=== PATIENT | male | born 1935 | race Caucasian/White ===

== ENCOUNTER 2017-04-12 06:35 | Inpatient (IN) ==
[2017-04-07 12:33] LABS: Basophils % 0.6 % (0.0-0.8); Eosinophils # 0.2 10*3/uL (0.0-0.87); Eosinophils % 2.6 % (0.00-10.9); Hematocrit 44.5 VOL% (42.0-52.0); Hemoglobin 14.2 GM/DL (14.0-18.0); Immature Granulocytes % 0.3 %; Immature Granulocytes Absolute 0.02 #; Lymphocytes # 2.2 10*3/uL (1.4-4.0); Lymphocytes % 30.8 % (21.2-54.2); Mean Corpuscular HGB Conc 31.9 GM/DL (32-36); Mean Corpuscular Hemoglobin 31 PG (27-34); Monocytes # 0.4 10*3/uL (0.11-0.8); Monocytes % 6.3 % (1.7-12.7); Neutrophils # 4.1 10*3/uL (1.4-7.4); Neutrophils % 59.4 % (38.7-73.9); Platelet Count 125 T/CUMM (130-400); Red Blood Count 4.54 MC/CUMM (3.8-5.5); Red Cell Distribution Width 13.3 % (9.3-17.3)
[2017-04-07 12:57] LABS: Albumin 3.9 G/DL (3.4-5.0); Bilirubin,Total 0.5 MG/DL (0.2-1.0); Calcium 8.9 MG/DL (8.5-10.1); Osmolality,Calculated 284.1 MOS/KG (273-304); Potassium 4.4 MMOL/L (3.5-5.1); Total Protein 6.6 G/DL (6.4-8.3)
[~2017-04-12 06:35] MED LIST: ceFAZolin 1,000 MG in SYRINGE 1 EACH IV ONE
[2017-04-12] MEDS ORDERED: VANCOMYCIN 500 MG VIAL ONE (07:18)
[2017-04-12] MEDS ORDERED: HEPARIN 5,000 UNIT/1 ML VIAL ONE (07:18)
[2017-04-12] MEDS ORDERED: ceFAZolin 1,000 MG VIAL ONE (07:29)
[2017-04-12] MEDS: LACTATED RINGERS 1,000 ML IV SCH ×3 (07:35→17:30)
[2017-04-12] MEDS ORDERED: HEPARIN/NACL 0.9% 2 UNITS/ML 500 ML IV ONE (08:10)
[2017-04-12] MEDS ORDERED: NITROGLYCERIN DRIP 50 MG/250 ML BOTTLE IV ONE (08:11)
[2017-04-12] MEDS ORDERED: FAMOTIDINE 20 MG/2 ML VIAL IV ONE ×2 (08:28→08:45)
[2017-04-12] MEDS ORDERED: HEPARIN 10,000 UNIT/10 ML VIAL ONE (08:43)
[2017-04-12] MEDS ORDERED: ETOMIDATE 20 MG/10 ML VIAL IV ONE (09:00)
[2017-04-12] MEDS ORDERED: DEXTROSE 50% 25 GM/50 ML VIAL IV PRN (10:21)
[2017-04-12] MEDS ORDERED: PROMETHAZINE 25 MG/1 ML VIAL IM PRN (10:21)
[2017-04-12] MEDS ORDERED: ONDANSETRON 4 MG/2 ML VIAL IV PRN (10:21)
[2017-04-12] MEDS ORDERED: oxyCODONE/ACETAMINOPHEN 5-325 MG TABLET PO PRN (10:21)
[2017-04-12] MEDS ORDERED: GLUCAGON 1 MG VIAL IM PRN (10:21)
[2017-04-12] MEDS ORDERED: NALOXONE 0.4 MG/ML VIAL IV PRN (10:21)
[2017-04-12] MEDS ORDERED: HYDROmorphone 2 MG/1 ML VIAL ONE (11:44)
[2017-04-12] MEDS: HYDROmorphone 2 MG/1 ML VIAL IV PRN ×3 (11:44→23:50)
[2017-04-12] MEDS ORDERED: HYDROmorphone 2 MG/1 ML VIAL IV PRN (12:18)
[2017-04-12] MEDS ORDERED: fentaNYL 100 MCG/2 ML VIAL ONE (12:51)
[2017-04-12] MEDS ORDERED: ONDANSETRON 4 MG/2 ML VIAL ONE (12:51)
[2017-04-12] MEDS ORDERED: MIDAZOLAM 2 MG/2 ML VIAL ONE (12:51)
[2017-04-12] MEDS ORDERED: GLYCOPYRROLATE 0.4 MG/2 ML VIAL ONE (12:51)
[2017-04-12] MEDS ORDERED: ROCURONIUM 100 MG/10 ML VIAL IV ONE (12:52)
[2017-04-12] MEDS ORDERED: PROTAMINE SULFATE 50 MG/5 ML VIAL IV ONE (12:52)
[2017-04-12] MEDS ORDERED: NEOSTIGMINE 10 MG/10 ML VIAL ONE (12:52)
[2017-04-12] MEDS: PHENYLEPHRINE DRIP 40 MG/250 ML PREMIX IV SCH (14:00)
[2017-04-12] MEDS: INSULIN REGULAR 100 UNIT/ML SUBCUT SCH ×3 (14:28→21:38)
[2017-04-12] MEDS: NITROPRUSSIDE 100 MG in DEXTROSE 5% 250 ML IV SCH (14:28)
[2017-04-12] MEDS ORDERED: Gluc Su/Chondro Su A/Vit C/Mn [Glucosamine Chondroitin Tab] 1 EA PO SCH (21:00)
[2017-04-12] MEDS: METOPROLOL TARTRATE 25 MG TABLET PO SCH (21:38)
[2017-04-12] MEDS: oxyCODONE/ACETAMINOPHEN 5-325 MG TABLET PO PRN (21:40)
[2017-04-13] MEDS: HYDROmorphone 2 MG/1 ML VIAL IV PRN ×4 (02:20→23:28)
[2017-04-13] MEDS: LACTATED RINGERS 1,000 ML IV SCH ×3 (03:40→22:18)
[2017-04-13 05:54] LABS: Risk Ratio 2.69; VLDL CHOLESTEROL 12.2 MG/DL
[2017-04-13] MEDS: INSULIN REGULAR 100 UNIT/ML SUBCUT SCH ×4 (08:25→21:12)
[2017-04-13] MEDS ORDERED: [UNRECOGNIZED DRUG - OTHER] PO SCH (09:00)
[2017-04-13] MEDS ORDERED: PRENATAL VITS PO SCH (09:00)
[2017-04-13] MEDS ORDERED: IRON FUM PO SCH (09:00)
[2017-04-13] MEDS ORDERED: ASPIRIN CHEW 81 MG TABLET PO SCH (09:00)
[2017-04-13] MEDS: LOVASTATIN 20 MG TABLET PO SCH (09:43)
[2017-04-13] MEDS: DILTIAZEM CD 120 MG CAPSULE PO SCH (09:44)
[2017-04-13] MEDS: DOCUSATE SODIUM 100 MG CAPSULE PO SCH (09:44)
[2017-04-13] MEDS: FAMOTIDINE 20 MG TABLET PO SCH (09:45)
[2017-04-13] MEDS: FUROSEMIDE 40 MG TABLET PO SCH (09:45)
[2017-04-13] MEDS: ASPIRIN EC 81 MG TABLET PO SCH (09:45)
[2017-04-13] MEDS: MAGNESIUM OXIDE 400 MG TABLET PO SCH (09:45)
[2017-04-13] MEDS: acetaZOLAMIDE 250 MG TABLET PO SCH (09:45)
[2017-04-13] MEDS: CLOPIDOGREL 75 MG TABLET PO SCH (09:45)
[2017-04-13] MEDS: METOPROLOL TARTRATE 25 MG TABLET PO SCH ×2 (09:46→20:49)
[2017-04-13] MEDS: POTASSIUM CHLORIDE 20 MEQ TABLET PO SCH (09:57)
[2017-04-13] MEDS: CHOLECALCIFEROL 1,000 UNIT TABLET PO SCH (09:57)
[2017-04-13] MEDS: oxyCODONE/ACETAMINOPHEN 5-325 MG TABLET PO PRN (13:17)
[2017-04-13] MEDS: PHENYLEPHRINE DRIP 40 MG/250 ML PREMIX IV SCH (22:18)
[2017-04-13] MEDS: NITROPRUSSIDE 100 MG in DEXTROSE 5% 250 ML IV SCH (22:18)
[2017-04-14] MEDS: INSULIN REGULAR 100 UNIT/ML SUBCUT SCH ×4 (07:30→21:58)
[2017-04-14] MEDS: DILTIAZEM CD 120 MG CAPSULE PO SCH (10:02)
[2017-04-14] MEDS: POTASSIUM CHLORIDE 20 MEQ TABLET PO SCH (10:03)
[2017-04-14] MEDS: CLOPIDOGREL 75 MG TABLET PO SCH (10:04)
[2017-04-14] MEDS: FAMOTIDINE 20 MG TABLET PO SCH (10:04)
[2017-04-14] MEDS: METOPROLOL TARTRATE 25 MG TABLET PO SCH ×2 (10:04→22:18)
[2017-04-14] MEDS: MAGNESIUM OXIDE 400 MG TABLET PO SCH (10:04)
[2017-04-14] MEDS: DOCUSATE SODIUM 100 MG CAPSULE PO SCH (10:04)
[2017-04-14] MEDS: LOVASTATIN 20 MG TABLET PO SCH (10:05)
[2017-04-14] MEDS: ASPIRIN EC 81 MG TABLET PO SCH (10:05)
[2017-04-14] MEDS: CHOLECALCIFEROL 1,000 UNIT TABLET PO SCH (10:05)
[2017-04-14] MEDS: FUROSEMIDE 40 MG TABLET PO SCH (10:14)
[2017-04-14] MEDS: oxyCODONE/ACETAMINOPHEN 5-325 MG TABLET PO PRN (10:17)
[2017-04-14] MEDS: acetaZOLAMIDE 250 MG TABLET PO SCH (10:17)
[2017-04-14] MEDS: ALBUTEROL/IPRATROPIUM 3 ML NEB RESP TX SCH (21:10)
[2017-04-14 21:16] LABS: Basophils % 0.1 % (0.0-0.8); Eosinophils % 0.3 % (0.00-10.9); Hematocrit 38.5 VOL% (42.0-52.0); Hemoglobin 12.4 GM/DL (14.0-18.0); Immature Granulocytes % 0.4 %; Immature Granulocytes Absolute 0.05 #; Lymphocytes % 8.9 % (21.2-54.2); Mean Corpuscular HGB Conc 32.2 GM/DL (32-36); Mean Corpuscular Hemoglobin 32 PG (27-34); Mean Platelet Volume 12.3 FL (9.6-12.0); Monocytes # 1.1 10*3/uL (0.11-0.8); Monocytes % 9.5 % (1.7-12.7); Neutrophils % 80.8 % (38.7-73.9); Platelet Count 109 T/CUMM (130-400); Red Blood Count 3.93 MC/CUMM (3.8-5.5); Red Cell Distribution Width 13.6 % (9.3-17.3); White Blood Count 11.2 T/CUMM (4-12)
[2017-04-14 21:33] LABS: ABG HCO3 30.7 MMOL/L (20-26); ABG PCO2 67.5 MM HG (35-48); ABG PH 7.329 (7.35-7.45); ABG TCO2 31.7 MMOL/L (23-27)
[2017-04-14 21:37] LABS: Albumin 3.3 G/DL (3.4-5.0); Bilirubin,Total 0.5 MG/DL (0.2-1.0); Calcium 8.4 MG/DL (8.5-10.1); Osmolality,Calculated 276.7 MOS/KG (273-304); Total Protein 5.8 G/DL (6.4-8.3)
[2017-04-14] MEDS: IBUPROFEN 400 MG TABLET PO PRN (22:03)
[2017-04-15] MEDS ORDERED: ALBUTEROL/IPRATROPIUM 3 ML NEB RESP TX SCH (01:00)
[2017-04-15] MEDS: ALBUTEROL/IPRATROPIUM 3 ML NEB RESP TX SCH ×3 (01:31→12:22)
[2017-04-15] MEDS: IBUPROFEN 400 MG TABLET PO PRN (04:50)
[2017-04-15] MEDS: INSULIN REGULAR 100 UNIT/ML SUBCUT SCH ×2 (08:09→12:18)
[2017-04-15] MEDS: POTASSIUM CHLORIDE 20 MEQ TABLET PO SCH (08:56)
[2017-04-15] MEDS: DOCUSATE SODIUM 100 MG CAPSULE PO SCH (08:56)
[2017-04-15] MEDS: DILTIAZEM CD 120 MG CAPSULE PO SCH (08:56)
[2017-04-15] MEDS: ASPIRIN EC 81 MG TABLET PO SCH (08:56)
[2017-04-15] MEDS: acetaZOLAMIDE 250 MG TABLET PO SCH (08:56)
[2017-04-15] MEDS: FUROSEMIDE 40 MG TABLET PO SCH (08:57)
[2017-04-15] MEDS: FAMOTIDINE 20 MG TABLET PO SCH (08:57)
[2017-04-15] MEDS: METOPROLOL TARTRATE 25 MG TABLET PO SCH (08:57)
[2017-04-15] MEDS: LOVASTATIN 20 MG TABLET PO SCH (08:57)
[2017-04-15] MEDS: MAGNESIUM OXIDE 400 MG TABLET PO SCH (08:57)
[2017-04-15] MEDS: CHOLECALCIFEROL 1,000 UNIT TABLET PO SCH (08:58)
[2017-04-15] MEDS: CLOPIDOGREL 75 MG TABLET PO SCH (08:58)
[2017-04-15 12:02] VITALS: BP 181/77
[2017-04-15 12:11] LABS: Amorphous Crystals,Urine Moderate /HPF (Few); Apearance,Urine Slightly Hazy (Clear); Bilirubin,Urine Negative (Negative); Blood, Urine Negative (Negative); Glucose,Urine (UA) Negative (Negative); Ketones,Urine Negative (Negative); Nitrite,Urine Negative (Negative); Protein,Urine Negative; Urine Color Yellow (Yellow); Urine Specific Gravity 1.008 (1.001-1.035); Urine Urobilinogen < 2.0 EU/DL (0.2-1.0); WBC,Urine 1 /HPF (0-6)
[2017-04-15] MEDS ORDERED: acetaZOLAMIDE 250 MG TABLET PO SCH (21:00)
[2017-04-18] MEDS ORDERED: Alendronate Sodium [Fosamax] 70 MG PO SCH (10:24)
[2017-05-11] MEDS ORDERED: CYANOCOBALAMIN 1000 MCG/1 ML VIAL IM SCH (09:00)
== END 2017-04-15 13:40 | disposition home health service (06) | DRG 38 ==
LOC: N.OR 06:35 → N.SDSINP 06:37 → N.CC 13:50 → N.4E 04-13 12:40
PROVIDERS: ADMIT Surgery; ATTEND Surgery

== ENCOUNTER 2017-11-07 09:18 | Inpatient (IN) ==
[2017-11-07] MEDS ORDERED: FUROSEMIDE 100 MG/10 ML VIAL IV STA (10:15)
[2017-11-07 10:23] LABS: Basophils % 0.5 % (0.0-0.8); Eosinophils # 0.1 10*3/uL (0.0-0.87); Eosinophils % 1.6 % (0.00-10.9); Hematocrit 46.6 VOL% (42.0-52.0); Hemoglobin 14.3 GM/DL (14.0-18.0); Immature Granulocytes % 0.4 %; Immature Granulocytes Absolute 0.03 #; Lymphocytes # 2.2 10*3/uL (1.4-4.0); Lymphocytes % 28.4 % (21.2-54.2); Mean Corpuscular HGB Conc 30.7 GM/DL (32-36); Mean Corpuscular Hemoglobin 31 PG (27-34); Mean Corpuscular Volume 102.4 FL (87-102); Mean Platelet Volume 12.6 FL (9.6-12.0); Monocytes # 0.7 10*3/uL (0.11-0.8); Monocytes % 9.6 % (1.7-12.7); Neutrophils # 4.6 10*3/uL (1.4-7.4); Neutrophils % 59.5 % (38.7-73.9); Platelet Count 140 T/CUMM (130-400); Red Blood Count 4.55 MC/CUMM (3.8-5.5); Red Cell Distribution Width 14.7 % (9.3-17.3); White Blood Count 7.7 T/CUMM (4-12)
[2017-11-07 10:39] LABS: Alanine Aminotransferase 24 U/L (16-61); Albumin 4.1 G/DL (3.4-5.0); Alkaline Phosphatase 79 U/L (45-117); Aspartate Amino Transferase 14 U/L (0-37); Bilirubin,Total < 0.39 MG/DL (0.2-1.0); Blood Urea Nitrogen 25 MG/DL (7-18); Calcium 8.7 MG/DL (8.5-10.1); Glucose 103 MG/DL (74-106); Osmolality,Calculated 286.1 MOS/KG (273-304); Potassium 4.4 MMOL/L (3.5-5.1); Sodium 142 MMOL/L (136-145); Total Protein 7.2 G/DL (6.4-8.3); Troponin I Only < 0.015 NG/ML (0.00-0.045)
[2017-11-07 11:01] LABS: Apearance,Urine CLEAR (Clear); Bilirubin,Urine Negative (Negative); Blood, Urine Negative (Negative); Glucose,Urine (UA) Negative (Negative); Hyaline Casts,Urine 7 /LPF (0-3); Ketones,Urine Negative (Negative); Mucus,Urine Occasional /LPF (Occasional); Nitrite,Urine Negative (Negative); Protein,Urine Negative; Urine Color Yellow (Yellow); Urine Specific Gravity 1.008 (1.001-1.035); Urine Urobilinogen < 2.0 EU/DL (0.2-1.0)
[2017-11-07] MEDS ORDERED: CYANOCOBALAMIN 1000 MCG/1 ML VIAL IM SCH (17:30)
[2017-11-07 17:51] LABS: ABG Base Excess 5.3 MMOL/L (-2.5-2.5); ABG HCO3 29.1 MMOL/L (20-26); ABG Oxygen Saturation 95.3 % (95-100); ABG PH 7.304 (7.35-7.45); ABG PO2 79.1 MM HG (80-95); ABG TCO2 30.4 MMOL/L (23-27)
[2017-11-07 17:54] LABS: ABG PCO2 69.8 MM HG (35-48)
[2017-11-07] MEDS ORDERED: ALBUTEROL 0.63 MG/3 ML NEB RESP TX SCH (18:30)
[2017-11-07] MEDS: methylPREDNISolone SOD SUC 40 MG/1 ML VIAL IV SCH ×2 (18:42→23:54)
[2017-11-07] MEDS: ALBUTEROL 0.63 MG/3 ML NEB RESP TX SCH (19:54)
[2017-11-07] MEDS: FUROSEMIDE 40 MG/4 ML VIAL IV SCH (21:32)
[2017-11-07] MEDS: GLUCOSAMINE 500 MG TABLET PO SCH (21:36)
[2017-11-07] MEDS: ASPIRIN EC 81 MG TABLET PO SCH (21:36)
[2017-11-07] MEDS: LOVASTATIN 20 MG TABLET PO SCH (21:36)
[2017-11-07] MEDS: CHOLECALCIFEROL 1,000 UNIT TABLET PO SCH (21:36)
[2017-11-07] MEDS: METOPROLOL TARTRATE 25 MG TABLET PO SCH (21:37)
[2017-11-07] MEDS: ENOXAPARIN 40 MG/0.4 ML SYRINGE SUBCUT SCH (21:37)
[2017-11-07] MEDS: DOCUSATE SODIUM 100 MG CAPSULE PO SCH (21:37)
[2017-11-08] MEDS: ALBUTEROL 0.63 MG/3 ML NEB RESP TX SCH ×4 (00:49→19:13)
[2017-11-08 01:07] LABS: Basophils % 0.3 % (0.0-0.8); Hematocrit 43.7 VOL% (42.0-52.0); Hemoglobin 13.8 GM/DL (14.0-18.0); Immature Granulocytes % 0.4 %; Immature Granulocytes Absolute 0.03 #; Lymphocytes # 0.7 10*3/uL (1.4-4.0); Lymphocytes % 8.8 % (21.2-54.2); Mean Corpuscular HGB Conc 31.6 GM/DL (32-36); Mean Corpuscular Hemoglobin 31 PG (27-34); Mean Corpuscular Volume 96.9 FL (87-102); Mean Platelet Volume 12.7 FL (9.6-12.0); Monocytes # 0.1 10*3/uL (0.11-0.8); Monocytes % 0.6 % (1.7-12.7); Neutrophils # 7.1 10*3/uL (1.4-7.4); Neutrophils % 89.9 % (38.7-73.9); Platelet Count 142 T/CUMM (130-400); Red Blood Count 4.51 MC/CUMM (3.8-5.5); Red Cell Distribution Width 14.3 % (9.3-17.3); White Blood Count 7.8 T/CUMM (4-12)
[2017-11-08 01:25] LABS: Albumin 3.6 G/DL (3.4-5.0); Bilirubin,Total 0.6 MG/DL (0.2-1.0); Calcium 9.1 MG/DL (8.5-10.1); Osmolality,Calculated 285.4 MOS/KG (273-304); Potassium 3.6 MMOL/L (3.5-5.1)
[2017-11-08] MEDS: methylPREDNISolone SOD SUC 40 MG/1 ML VIAL IV SCH ×4 (05:40→23:30)
[2017-11-08] MEDS: GLUCOSAMINE 500 MG TABLET PO SCH ×2 (09:49→20:16)
[2017-11-08] MEDS: CALCIUM (CARBONATE) 500 MG TABLET PO SCH (09:50)
[2017-11-08] MEDS: MULTIVITAMIN (CENTRUM) TABLET PO SCH (09:50)
[2017-11-08] MEDS: METOPROLOL TARTRATE 25 MG TABLET PO SCH ×2 (09:50→20:16)
[2017-11-08] MEDS: PANTOPRAZOLE 40 MG TABLET PO SCH (09:50)
[2017-11-08] MEDS: POTASSIUM CHLORIDE 20 MEQ TABLET PO SCH (09:50)
[2017-11-08] MEDS: acetaZOLAMIDE 250 MG TABLET PO SCH (09:50)
[2017-11-08] MEDS: DILTIAZEM CD 120 MG CAPSULE PO SCH (09:50)
[2017-11-08] MEDS: MAGNESIUM OXIDE 400 MG TABLET PO SCH (09:50)
[2017-11-08] MEDS: FUROSEMIDE 40 MG/4 ML VIAL IV SCH ×2 (09:51→17:20)
[2017-11-08] MEDS: CHOLECALCIFEROL 1,000 UNIT TABLET PO SCH (20:16)
[2017-11-08] MEDS: ENOXAPARIN 40 MG/0.4 ML SYRINGE SUBCUT SCH (20:16)
[2017-11-08] MEDS: LOVASTATIN 20 MG TABLET PO SCH (20:16)
[2017-11-08] MEDS: ASPIRIN EC 81 MG TABLET PO SCH (20:16)
[2017-11-08] MEDS: DOCUSATE SODIUM 100 MG CAPSULE PO SCH (20:16)
[2017-11-09] MEDS: ALBUTEROL 0.63 MG/3 ML NEB RESP TX SCH ×3 (00:36→12:45)
[2017-11-09] MEDS: methylPREDNISolone SOD SUC 40 MG/1 ML VIAL IV SCH ×2 (05:36→13:09)
[2017-11-09] MEDS: BICALUTAMIDE 50 MG TABLET PO SCH (06:52)
[2017-11-09 06:53] LABS: Hematocrit 40.8 VOL% (42.0-52.0); Hemoglobin 13.4 GM/DL (14.0-18.0); Immature Granulocytes % 0.3 %; Immature Granulocytes Absolute 0.03 #; Lymphocytes # 0.8 10*3/uL (1.4-4.0); Lymphocytes % 8.6 % (21.2-54.2); Mean Corpuscular HGB Conc 32.8 GM/DL (32-36); Mean Corpuscular Hemoglobin 31 PG (27-34); Mean Corpuscular Volume 95.3 FL (87-102); Mean Platelet Volume 12.6 FL (9.6-12.0); Monocytes # 0.3 10*3/uL (0.11-0.8); Monocytes % 2.7 % (1.7-12.7); Neutrophils # 8.1 10*3/uL (1.4-7.4); Neutrophils % 88.4 % (38.7-73.9); Platelet Count 150 T/CUMM (130-400); Red Blood Count 4.28 MC/CUMM (3.8-5.5); Red Cell Distribution Width 14.2 % (9.3-17.3); White Blood Count 9.2 T/CUMM (4-12)
[2017-11-09 07:20] LABS: Calcium 8.6 MG/DL (8.5-10.1); Osmolality,Calculated 288.3 MOS/KG (273-304); Potassium 3.6 MMOL/L (3.5-5.1)
[2017-11-09] MEDS: METOPROLOL TARTRATE 25 MG TABLET PO SCH (09:14)
[2017-11-09] MEDS: acetaZOLAMIDE 250 MG TABLET PO SCH (09:14)
[2017-11-09] MEDS: GLUCOSAMINE 500 MG TABLET PO SCH (09:14)
[2017-11-09] MEDS: MULTIVITAMIN (CENTRUM) TABLET PO SCH (09:14)
[2017-11-09] MEDS: MAGNESIUM OXIDE 400 MG TABLET PO SCH (09:14)
[2017-11-09] MEDS: CALCIUM (CARBONATE) 500 MG TABLET PO SCH (09:15)
[2017-11-09] MEDS: POTASSIUM CHLORIDE 20 MEQ TABLET PO SCH (09:15)
[2017-11-09] MEDS: PANTOPRAZOLE 40 MG TABLET PO SCH (09:15)
[2017-11-09] MEDS: DILTIAZEM CD 120 MG CAPSULE PO SCH (09:15)
[2017-11-09] MEDS: FUROSEMIDE 40 MG/4 ML VIAL IV SCH (09:16)
[2017-11-09 14:16] VITALS: BP 121/59
[2017-11-21] MEDS ORDERED: CYANOCOBALAMIN 1000 MCG/1 ML VIAL IM SCH (09:00)
== END 2017-11-09 15:17 | disposition home or self-care (01) | DRG 292 ==
LOC: EDUNIT# → EDBD → N.EDINP 09:18 → N.ED 09:18 → N.5E 17:26

== ENCOUNTER 2020-04-12 22:24 | Observation (INO) ==
[2020-04-12 23:24] LABS: ABG Base Excess 8.7 MMOL/L (-2.5-2.5); ABG HCO3 32.4 MMOL/L (20-26); ABG Oxygen Saturation 92.8 % (95-100); ABG PH 7.331 (7.35-7.45); ABG PO2 70.1 MM HG (80-95); ABG TCO2 33.7 MMOL/L (23-27); Allen Test Positive
[2020-04-12 23:25] LABS: ABG PCO2 71.8 MM HG (35-48)
[2020-04-12 23:30] LABS: Basophils % 0.4 % (0.0-0.8); Eosinophils # 0.1 10*3/uL (0.0-0.87); Eosinophils % 0.8 % (0.00-10.9); Hemoglobin 12.6 GM/DL (14.0-18.0); Immature Granulocytes % 0.4 %; Immature Granulocytes Absolute 0.03 #; Lymphocytes # 1.2 10*3/uL (1.4-4.0); Lymphocytes % 15.6 % (21.2-54.2); Mean Corpuscular HGB Conc 30.7 GM/DL (32-36); Mean Corpuscular Volume 99.5 FL (87-102); Mean Platelet Volume 11.9 FL (9.6-12.0); Monocytes % 10.1 % (1.7-12.7); Neutrophils % 72.7 % (38.7-73.9); Platelet Count 141 T/CUMM (130-400); Red Blood Count 4.12 MC/CUMM (3.8-5.5); Red Cell Distribution Width 14.7 % (9.3-17.3); White Blood Count 7.4 T/CUMM (4-12)
[2020-04-12 23:45] LABS: Albumin 3.8 G/DL (3.4-5.0); Bilirubin,Total 0.4 MG/DL (0.2-1.0); Total Protein 6.5 G/DL (6.4-8.3)
[2020-04-13 00:55] LABS: Bilirubin,Urine Negative (Negative); Blood, Urine Negative (Negative); Glucose,Urine (UA) Negative (Negative); Hyaline Casts,Urine 21 /LPF (0-3); Ketones,Urine Negative (Negative); Mucus,Urine Occasional /LPF (Occasional); Nitrite,Urine Negative (Negative); Protein,Urine Negative; RBC,Urine 1 /HPF (0-4); Urine Appearance CLEAR (Clear); Urine Color Yellow (Yellow); Urine Specific Gravity 1.017 (1.001-1.035); Urine Urobilinogen < 2.0 EU/DL (0.2-1.0); WBC,Urine <1 /HPF (0-6)
[2020-04-13] MEDS ORDERED: FUROSEMIDE 40 MG/4 ML VIAL IV STA (01:55)
[2020-04-13] MEDS ORDERED: ONDANSETRON 4 MG/2 ML VIAL IV PRN (04:21)
[2020-04-13 07:39] LABS: INR 1.5; PT Patient Result 15.8 SECS (9.8-11.9)
[2020-04-13] MEDS: ALBUTEROL/IPRATROPIUM 3 ML NEB RESP TX SCH ×3 (08:30→19:19)
[2020-04-13] MEDS: DOCUSATE SODIUM 100 MG CAPSULE PO PRN (09:05)
[2020-04-13] MEDS: FUROSEMIDE 40 MG/4 ML VIAL IV SCH ×2 (09:05→17:15)
[2020-04-13] MEDS: predniSONE 20 MG TABLET PO SCH (09:05)
[2020-04-13] MEDS: DILTIAZEM CD 120 MG CAPSULE PO SCH (11:48)
[2020-04-13] MEDS: METOPROLOL TARTRATE 25 MG TABLET PO SCH ×2 (11:49→21:52)
[2020-04-13] MEDS: ACETAMINOPHEN 325 MG TABLET PO PRN ×2 (13:02→18:40)
[2020-04-13 13:55] LABS: ABG Base Excess 11.9 MMOL/L (-2.5-2.5); ABG HCO3 35.6 MMOL/L (20-26); ABG Oxygen Saturation 94.3 % (95-100); ABG PH 7.356 (7.35-7.45); ABG PO2 72.1 MM HG (80-95); ABG TCO2 36.6 MMOL/L (23-27)
[2020-04-13 13:58] LABS: ABG PCO2 72.8 MM HG (35-48)
[2020-04-13] MEDS: WARFARIN 7.5 MG TABLET PO SCH (17:14)
[2020-04-13] MEDS ORDERED: POTASSIUM CHLORIDE 20 MEQ TABLET PO ONE (19:26)
[2020-04-13] MEDS: CHOLECALCIFEROL 1,000 UNIT TABLET PO SCH (21:52)
[2020-04-13] MEDS: SIMVASTATIN 10 MG TABLET PO SCH (21:52)
[2020-04-13] MEDS: ASPIRIN EC 81 MG TABLET PO SCH (21:52)
[2020-04-13] MEDS: DOCUSATE SODIUM 100 MG CAPSULE PO SCH (21:52)
[2020-04-14] MEDS: ALBUTEROL/IPRATROPIUM 3 ML NEB RESP TX SCH ×4 (01:10→19:27)
[2020-04-14 04:45] LABS: ABG Base Excess 14.8 MMOL/L (-2.5-2.5); ABG HCO3 38.7 MMOL/L (20-26); ABG Oxygen Saturation 97.7 % (95-100); ABG PH 7.387 (7.35-7.45); ABG PO2 92.8 MM HG (80-95); ABG TCO2 39.1 MMOL/L (23-27); Allen Test Positive; Pt O2 Delivery Device BIPAP
[2020-04-14 06:47] LABS: Basophils % 0.2 % (0.0-0.8); Eosinophils % 0.2 % (0.00-10.9); Hematocrit 35.5 VOL% (42.0-52.0); Hemoglobin 11.3 GM/DL (14.0-18.0); Immature Granulocytes % 0.5 %; Immature Granulocytes Absolute 0.04 #; Lymphocytes # 1.3 10*3/uL (1.4-4.0); Lymphocytes % 15.3 % (21.2-54.2); Mean Corpuscular HGB Conc 31.8 GM/DL (32-36); Mean Corpuscular Volume 96.5 FL (87-102); Mean Platelet Volume 12.1 FL (9.6-12.0); Monocytes % 11.7 % (1.7-12.7); Neutrophils % 72.1 % (38.7-73.9); Platelet Count 130 T/CUMM (130-400); Red Blood Count 3.68 MC/CUMM (3.8-5.5); Red Cell Distribution Width 14.3 % (9.3-17.3); White Blood Count 8.2 T/CUMM (4-12)
[2020-04-14 07:13] LABS: Albumin 3.3 G/DL (3.4-5.0); Bilirubin,Total 0.6 MG/DL (0.2-1.0); Calcium 9.1 MG/DL (8.5-10.1); Osmolality,Calculated 278.8 MOS/KG (273-304); Total Protein 6.1 G/DL (6.4-8.3)
[2020-04-14] MEDS: DOCUSATE SODIUM 100 MG CAPSULE PO PRN (09:23)
[2020-04-14] MEDS: DILTIAZEM CD 120 MG CAPSULE PO SCH (09:23)
[2020-04-14] MEDS: predniSONE 20 MG TABLET PO SCH (09:24)
[2020-04-14] MEDS: MAGNESIUM OXIDE 400 MG TABLET PO SCH (09:24)
[2020-04-14] MEDS: METOPROLOL TARTRATE 25 MG TABLET PO SCH ×2 (09:24→21:30)
[2020-04-14] MEDS: CALCIUM (CARBONATE) 500 MG TABLET PO SCH (09:25)
[2020-04-14] MEDS: POTASSIUM CHLORIDE 20 MEQ TABLET PO SCH (09:26)
[2020-04-14] MEDS: FUROSEMIDE 40 MG/4 ML VIAL IV SCH ×2 (09:26→16:11)
[2020-04-14] MEDS: VANCOMYCIN INJ 1,750 MG in SODIUM CHLORIDE 0.9% 500 ML IV SCH (14:56)
[2020-04-14] MEDS: WARFARIN 7.5 MG TABLET PO SCH (18:14)
[2020-04-14] MEDS: CHOLECALCIFEROL 1,000 UNIT TABLET PO SCH (21:29)
[2020-04-14] MEDS: DOCUSATE SODIUM 100 MG CAPSULE PO SCH (21:30)
[2020-04-14] MEDS: ASPIRIN EC 81 MG TABLET PO SCH (21:30)
[2020-04-14] MEDS: SIMVASTATIN 10 MG TABLET PO SCH (21:32)
[2020-04-15] MEDS: ALBUTEROL/IPRATROPIUM 3 ML NEB RESP TX SCH ×3 (00:57→13:36)
[2020-04-15 05:56] LABS: Basophils % 0.3 % (0.0-0.8); Eosinophils # 0.1 10*3/uL (0.0-0.87); Eosinophils % 0.8 % (0.00-10.9); Hemoglobin 11.6 GM/DL (14.0-18.0); Immature Granulocytes % 0.3 %; Immature Granulocytes Absolute 0.03 #; Lymphocytes # 1.4 10*3/uL (1.4-4.0); Lymphocytes % 15.5 % (21.2-54.2); Mean Corpuscular HGB Conc 31.4 GM/DL (32-36); Mean Corpuscular Volume 96.4 FL (87-102); Mean Platelet Volume 12.1 FL (9.6-12.0); Monocytes % 9.7 % (1.7-12.7); Neutrophils % 73.4 % (38.7-73.9); Platelet Count 133 T/CUMM (130-400); Red Blood Count 3.84 MC/CUMM (3.8-5.5); Red Cell Distribution Width 14.3 % (9.3-17.3); White Blood Count 8.8 T/CUMM (4-12)
[2020-04-15 06:33] LABS: Calcium 9.5 MG/DL (8.5-10.1); Total Protein 6.3 G/DL (6.4-8.3)
[2020-04-15] MEDS: FUROSEMIDE 40 MG/4 ML VIAL IV SCH (09:37)
[2020-04-15] MEDS: CALCIUM (CARBONATE) 500 MG TABLET PO SCH (10:03)
[2020-04-15] MEDS: POTASSIUM CHLORIDE 20 MEQ TABLET PO SCH (10:03)
[2020-04-15] MEDS: METOPROLOL TARTRATE 25 MG TABLET PO SCH (10:04)
[2020-04-15] MEDS: DILTIAZEM CD 120 MG CAPSULE PO SCH (10:04)
[2020-04-15] MEDS: MAGNESIUM OXIDE 400 MG TABLET PO SCH (10:04)
[2020-04-15] MEDS: predniSONE 20 MG TABLET PO SCH (10:07)
[2020-04-15] MEDS: DOCUSATE SODIUM 100 MG CAPSULE PO PRN (10:07)
[2020-04-15] MEDS: VANCOMYCIN INJ 1,750 MG in SODIUM CHLORIDE 0.9% 500 ML IV SCH (10:21)
[2020-04-15 11:36] LABS: INR 1.5
[2020-04-15] MEDS ORDERED: WARFARIN 3 MG TABLET PO ONE (12:10)
[2020-04-15] MEDS ORDERED: POTASSIUM CHLORIDE 20 MEQ TABLET PO ONE (12:11)
[2020-04-15 15:44] VITALS: BP 130/71
[2020-04-15] MEDS ORDERED: FUROSEMIDE 40 MG TABLET PO SCH (16:00)
== END 2020-04-15 18:02 | disposition home or self-care (01) ==
LOC: EDUNIT# → EDBD → N.ED 22:24 → N.EDINP 22:24 → SUATTDRO 04-13 04:09 → N.EDINP 04-13 05:58 → N.TELES 04-13 06:35
PROVIDERS: ADMIT Family Medicine; ATTEND Internal Medicine